=== PATIENT | female | born 2000 | race Caucasian/White ===

== ENCOUNTER 2022-11-06 23:35 | Emergency (ER) | payer OTHER ==
[~2022-11-06] VITALS: Ht 165.1 cm; Wt 90.7 kg
[2022-11-06 23:40] VITALS: BP 129/92
--- NOTE | 2022-11-06 23:47 | NUR ---
TO LOBBY FOLLOWING TRIAGE
--- NOTE | 2022-11-07 01:10 | NUR ---
Patient taken to bed 2.
--- NOTE | 2022-11-07 01:22 | NUR ---
Dr. Escobar examining patient with BRITTANI Strickland
--- NOTE | 2022-11-07 02:14 | NUR ---
I&D Procedure done by Dr Escobar. small amt of bleeding noted. dressed with guaze. Pt tolerated procedure. Wound care discussed w/ patient.watermaster BRITTANI Elizalde
[2022-11-07] MEDS ORDERED: IBUP-2213 PO (02:17)
[2022-11-07] MEDS ORDERED: SULF-59 PO (02:17)
[2022-11-07 02:21] VITALS: BP 129/92
--- NOTE | 2022-11-07 02:24 | NUR ---
Patient discharged with v/s stable. Written and verbal after care instructions given and explained. Patient alert, oriented and verbalized understanding of instructions. Ambulatory with steady gait. All questions addressed prior to discharge. ID band removed. Patient advised to follow up with PMD. Rx of buprofen and sulfamethoxazole given. Patient educated on indication of medication including possible reaction and side effects. Opportunity to ask questions provided and answered.
== END 2022-11-07 02:24 | disposition home or self-care (01) ==
LOC: MED 23:35
DX: L02.31 Cutaneous abscess of buttock (principal); L03.317 Cellulitis of buttock; Z79.1 Long term (current) use of non-steroidal anti-inflammatories (NSAID); Z79.2 Long term (current) use of antibiotics
CPT/HCPCS: 99283